=== PATIENT | male | born 1995 | race Caucasian/White ===

== ENCOUNTER 2019-02-28 01:37 | Emergency (ER) | payer SELFPAY ==
[~2019-02-28] VITALS: Ht 167.6 cm; Wt 86.6 kg
[2019-02-28] MEDS ORDERED: ACETAMINOPHEN 325MG TABLET PO ONE (02:15)
[2019-02-28 06:30] VITALS: BP 109/64
== END 2019-02-28 14:52 | disposition home or self-care (01) ==
LOC: ER 01:37 → EDBD 01:37 → ER 14:52
DX: F10.129 Alcohol abuse with intoxication, unspecified (principal); F12.10 Cannabis abuse, uncomplicated; F17.200 Nicotine dependence, unspecified, uncomplicated; Y90.9 Presence of alcohol in blood, level not specified
CPT/HCPCS: 99283

== ENCOUNTER 2019-03-04 19:33 | Emergency (ER) | payer SELFPAY ==
[~2019-03-04] VITALS: Ht 172.7 cm; Wt 82.0 kg
[2019-03-04] MEDS ORDERED: HALOPERIDOL LACTATE 5MG/ML VIAL IM STA (21:24)
[2019-03-04] MEDS ORDERED: SODIUM CHLORIDE 0.9% 1,000 ML IV ONE (21:24)
[2019-03-04 21:56] LABS: BASOPHILS % 0.6 % (0.0-2.0); EOSINOPHILS % 3.6 % (0.0-5.0); HEMATOCRIT. 45.6 % (42.0-52.0); HEMOGLOBIN. 15.6 g/dL (14.0-18.0); LYMPHOCYTES % 38.6 % (20.0-50.0); MEAN CORPUSCULAR HEMOGLOBIN 32.7 pg (28.0-32.0); MEAN CORPUSCULAR VOLUME 95.3 fL (80.0-94.0); MEAN PLATELET VOLUME 7.5 fl (7.4-10.4); MONOCYTES % 7.3 % (2.0-8.0); NEUTROPHILS % 49.9 % (40.0-76.0); PLATELET 280 x1000/uL (130-400); RED BLOOD CELL COUNT 4.78 mill/uL (4.7-6.1); RED CELL DISTRIBUTION WIDTH 13.8 % (11.6-14.6)
[2019-03-04 22:03] LABS: CHLORIDE 111 mEq/L (98-107)
[2019-03-04 22:07] LABS: ETHANOL BLOOD 196 mg/dL
[2019-03-04 22:22] LABS: CLARITY URINE CLEAR (CLEAR); COLOR URINE YELLOW (YELLOW); KETONES URINE NEGATIVE (NEGATIVE); LEUKOCYTE ESTERASE URINE NEGATIVE (NEGATIVE); NITRITE URINE NEGATIVE (NEGATIVE); OCCULT BLOOD URINE NEGATIVE (NEGATIVE); PH URINE 5.5 (4.5-8.0); PROTEIN URINE NEGATIVE (NEGATIVE); SPECIFIC GRAVITY URINE 1.013 (1.005-1.030); UROBILINOGEN URINE 0.2 E.U./dL (0.2-1.0)
[2019-03-04 22:34] LABS: *AMPHETAMINES SCREEN URINE NEGATIVE (NEGATIVE); *BARBITURATES SCREEN URINE NEGATIVE (NEGATIVE); *BENZODIAZEPINES SCREEN URINE NEGATIVE (NEGATIVE); *COCAINE SCREEN URINE NEGATIVE (NEGATIVE); METHADONE URINE SCREEN NEGATIVE (NEGATIVE); OPIATES URINE SCREEN NEGATIVE (NEGATIVE)
[2019-03-04 22:35] LABS: CANNABINOID URINE SCREEN PRESUMTIVE POSITIVE (NEGATIVE); PHENCYCLIDINE URINE SCREEN NEGATIVE (NEGATIVE)
[2019-03-04] MEDS ORDERED: POTASSIUM CHLORIDE 20MEQ TABLET SR PO ONE (23:45)
[2019-03-05 09:04] VITALS: BP 110/55
== END 2019-03-05 09:06 | disposition home or self-care (01) ==
LOC: ER 19:33
DX: F10.129 Alcohol abuse with intoxication, unspecified (principal); F12.10 Cannabis abuse, uncomplicated; F23 Brief psychotic disorder; E87.6 Hypokalemia; F17.200 Nicotine dependence, unspecified, uncomplicated
CPT/HCPCS: 36415; 71045; 80053; 80305; 80307; 80320; 80329; 81003; 84443; 85025; 93005; 96372; 99284; J1630; J7030; Z7610; G0480

== ENCOUNTER 2019-04-01 22:59 | Emergency (ER) | payer SELFPAY | END 2019-04-02 02:26 | disposition left against medical advice (07) | LOC: ER 22:59 | DX: Z53.21 Procedure and treatment not carried out due to patient leaving prior to being seen by health care provider (principal) ==

== ENCOUNTER 2019-10-14 16:01 | Emergency (ER) | payer SELFPAY ==
[~2019-10-14] VITALS: Ht 172.7 cm; Wt 64.0 kg
[2019-10-14 17:07] VITALS: BP 134/90
== END 2019-10-14 21:04 | disposition left against medical advice (07) ==
LOC: ER 16:01
DX: R51 Headache (principal); Z53.21 Procedure and treatment not carried out due to patient leaving prior to being seen by health care provider